=== PATIENT | male | born 1940 | race Caucasian/White ===

== ENCOUNTER 2017-04-06 15:06 | Emergency (ER) | payer MEDICARE ==
[~2017-04-06] VITALS: Ht 175.3 cm; Wt 65.6 kg
[~2017-04-06 15:06] MED LIST: ASCO500T29 PO; ASPI-650 PO; CHOL200040 PO; DOXA2TAB9 PO; PRAV40TA2 PO
[2017-04-06 15:07] VITALS: BP 149/77
[2017-04-06] MEDS ORDERED: BUPIVACAINE/PF 0.5% ONE (15:37)
[2017-04-06] MEDS ORDERED: LIDOCAINE 1%, 20ML ONE (15:38)
[2017-04-06] MEDS ORDERED: DIPH,PERTUSS(ACELL),TET VAC/PF 0.5 ML IM-VACC ONE ×2 (15:48→16:00)
[2017-04-06] MEDS ORDERED: LIDOCAINE 1%, 20ML SQ ONE (16:00)
[2017-04-06] MEDS ORDERED: BUPIVACAINE 0.25% INFIL ONE (16:00)
== END 2017-04-06 16:44 | disposition home or self-care (01) ==
LOC: ED 16:15
DX: S91.201A Unspecified open wound of right great toe with damage to nail, initial encounter (principal); E78.00 Pure hypercholesterolemia, unspecified; I10 Essential (primary) hypertension; Z87.891 Personal history of nicotine dependence; X58.XXXA Exposure to other specified factors, initial encounter; Y93.89 Activity, other specified; Y99.8 Other external cause status; Y92.009 Unspecified place in unspecified non-institutional (private) residence as the place of occurrence of the external cause
CPT/HCPCS: 64450; 90471; 90715